=== PATIENT | male | born 1970 | race African-American/Black ===

== ENCOUNTER 2023-07-13 18:43 | Emergency (ER) | payer BC | END 2023-07-13 20:01 | disposition home or self-care (01) | LOC: MW.ED 18:43 | DX: Z76.0 Encounter for issue of repeat prescription (principal); I10 Essential (primary) hypertension; E78.00 Pure hypercholesterolemia, unspecified; Z79.899 Other long term (current) drug therapy; Z88.1 Allergy status to other antibiotic agents | CPT/HCPCS: 99281; 99283 ==

== ENCOUNTER 2023-08-01 19:04 | Emergency (ER) | payer BC ==
[2023-08-01 22:05] LABS: APPEARANCE,URINE CLEAR; BILIRUBIN,URINE NEGATIVE (NEGATIVE); COLOR,URINE YELLOW; GLUCOSE,URINE NEGATIVE (NEGATIVE); KETONES,URINE NEGATIVE (NEGATIVE); LEUKOCYTE ESTERASE,URINE NEGATIVE (NEGATIVE); NITRITE,URINE NEGATIVE (NEGATIVE); OCCULT BLOOD,URINE NEGATIVE (NEGATIVE); PH,URINE 7.5 (5.0-8.0); PROTEIN,URINE NEGATIVE (NEGATIVE); UROBILINOGEN,URINE >=8.0 EU/dL (<2.0)
[2023-08-01 23:34] LABS: C. TRACHOMATIS BY PCR NOT DETECTED; N. GONORRHOEAE BY PCR NOT DETECTED
== END 2023-08-01 21:56 | disposition home or self-care (01) ==
LOC: MW.ED 19:04
DX: Z11.3 Encounter for screening for infections with a predominantly sexual mode of transmission (principal); E78.00 Pure hypercholesterolemia, unspecified; I10 Essential (primary) hypertension; Z79.899 Other long term (current) drug therapy; Z88.1 Allergy status to other antibiotic agents
CPT/HCPCS: 36415; 81003; 87389; 87491; 87591; 99281; 99283

== ENCOUNTER 2023-12-31 10:15 | Day surgery (SDC) | payer BC ==
[2023-12-31] MEDS: Lactated Ringers 1,000 ML IV SCH (11:06)
[2023-12-31] MEDS ORDERED: propofoL 50 ML ONE (11:14)
[2023-12-31] MEDS ORDERED: Lactated Ringers 1,000 ML IV SCH (11:45)
== END 2023-12-31 12:50 | disposition home or self-care (01) ==
LOC: MW.SDS 10:15
PROVIDERS: ATTEND Surgery
DX: Z12.11 Encounter for screening for malignant neoplasm of colon (principal); I10 Essential (primary) hypertension; E78.00 Pure hypercholesterolemia, unspecified; Z79.899 Other long term (current) drug therapy
CPT/HCPCS: 45378; J2704; J7120